=== PATIENT | female | born 1955 | race Two or more races ===

== ENCOUNTER 2016-07-20 14:20 | Emergency (ER) | payer OTHER ==
--- NOTE | ~2016-07-20 | CR173 ---
[facility] A Service of [facility] & [facility] RADIOLOGY TEXT RESULTS PATIENT: LUÍS POLO LOCATION: [facility] : 59 UNIT #: [id number] AGE: [address]: Jaquelin Garcia SEX: F ORDER DR: [id number] [facility] [address] [place], [place] [address] [id number] MR#: [id number] Acc #: [id number] NAME: LUÍS POLO : 1955 SEX: F STUDY DATE/TIME: 07/20/2016 14:41 UNIT: [facility] ROOM: STUDY DESCRIPTION: CR Knee 3 Views Rt Attending Physician: Jaquelin Garcia P.A.-C. Ordering Physician: Jaquelin Garcia P.A.-C. Primary Care Physician: Primary Care Physician No MEDICAL IMAGING REPORT This report is preliminary unless electronic signature is present EXAM Right knee series, 07/20/2016 HISTORY Trauma. Fell 1 day ago. Pain in right knee, proximal tibia fibula. FINDINGS AP, lateral, sunrise views right tibia-fibula show no fracture or malalignment. Joint spaces intact. No acute soft tissue abnormality and no joint effusion. Dictated by... Ashish Brennan M.D. THIS IS AN ELECTRONICALLY VERIFIED REPORT Ashish Brennan M.D. at 07/21/2016 6:12 PM ALDAIR/estrellita TD: 07/20/2016 15:26 JOB #: [id number] MEDICAL IMAGING REPORT Page 1 of 1 COPY
--- NOTE | ~2016-07-20 | CR253 ---
[facility] A Service of [facility] & [facility] RADIOLOGY TEXT RESULTS PATIENT: LUÍS POLO LOCATION: [facility] : 59 UNIT #: [id number] AGE: [address]: Jaquelin Garcia SEX: F ORDER DR: [id number] [facility] [address] [place], [place] [address] [id number] MR#: [id number] Acc #: [id number] NAME: LUÍS POLO : 1955 SEX: F STUDY DATE/TIME: 07/20/2016 14:41 UNIT: [facility] ROOM: STUDY DESCRIPTION: CR Tibia and Fibula 2 Views Rt Attending Physician: Jaquelin Garcia P.A.-C. Ordering Physician: Jaquelin Garcia P.A.-C. Primary Care Physician: No Primary Care Physician MEDICAL IMAGING REPORT This report is preliminary unless electronic signature is present EXAM Right tibia-fibula series, 07/20/16. HISTORY Trauma. Pain in right knee and proximal tib-fib one day. Patient fell. FINDINGS AP and lateral radiographs of the tibia and fibula are presented. The patient describes 1 day duration of symptoms. No traumatic fracture or malalignment. Knee and ankle joints appear normally aligned and located in visualized extent. Well corticated chronic appearing soft tissue calcification along the inferior aspect of the lateral malleolus. Small plantar calcaneal spur. No acute appearing soft tissue abnormality. Dictated by... Ashish Brennan M.D. THIS IS AN ELECTRONICALLY VERIFIED REPORT Ashish Brennan M.D. at 07/21/2016 6:12 PM ALDAIR/cadence TD: 07/20/2016 15:48 JOB #: [id number] MEDICAL IMAGING REPORT Page 1 of 1 COPY
== END 2016-07-20 15:27 | disposition home or self-care (01) ==
LOC: CFTX 14:20 → CED 14:20 → CFTX 15:11
DX: S83.421A Sprain of lateral collateral ligament of right knee, initial encounter (principal); I10 Essential (primary) hypertension; W19.XXXA Unspecified fall, initial encounter; Y92.009 Unspecified place in unspecified non-institutional (private) residence as the place of occurrence of the external cause
CPT/HCPCS: 29505; 73562; 73590; 99283